=== PATIENT | male | born 1935 | race Caucasian/White ===

== ENCOUNTER 2021-12-17 15:36 | Inpatient (IN) | payer MEDICARE, BC ==
[~2021-12-17] VITALS: Ht 165.1 cm; Wt 85.0 kg
--- NOTE | 2021-12-17 16:25 | NUR ---
Patient to room 346 by EMS, Alert and drowsy. Family at the bedside. Nurse oriented the patient and family to location, call light and room. NG to LIS, no output. Call light within reach. Bed alarm on
[2021-12-17] MEDS ORDERED: SYNTHROID0.075 MG/T PO (17:45)
[2021-12-17] MEDS ORDERED: XARELTO20 MG PO (17:45)
[2021-12-17] MEDS ORDERED: MEVACOR40 MG PO (17:45)
[2021-12-17] MEDS ORDERED: PROSCAR 5MG5 MG PO (17:45)
[2021-12-17] MEDS ORDERED: PROTONIX 40MG T40 MG PO (17:45)
[2021-12-17] MEDS ORDERED: LOSARTAN-HCTZ 100-25 PO (17:45)
[2021-12-17] MEDS ORDERED: KLOR-CON M1010 MEQ PO (17:46)
[2021-12-17] MEDS ORDERED: COREG 25MG25 MG/TAB PO (17:46)
[2021-12-17] MEDS ORDERED: NEURONTIN300 MG/CAP PO (17:46)
[2021-12-17] MEDS ORDERED: HYZAAR 25 MG-101 TAB PO (17:47)
[2021-12-17 18:10] VITALS: BP 164/73; PULSE 79; TEMP 98.6
--- NOTE | 2021-12-17 19:28 | NUR ---
Patient more awake in bed, family left. A&O, drowsy. Complaints of pain/discomfort in abdomen. IV CDI, fluids infusing. NG LIS, no output. [place] at the bedside. Patient NPO. Call light within reach. Bed alarm on
[2021-12-17 20:21] VITALS: BP 155/63; PULSE 61; TEMP 98
[2021-12-17 23:45] VITALS: BP 175/71; PULSE 68; TEMP 98
[2021-12-18] VITALS (11 sets, daily range): BP systolic 92–153; BP diastolic 54–62; PULSE 60–80; TEMP 97.7–99.1
--- NOTE | 2021-12-18 02:10 | NUR ---
Received report from day shift. Patient resting in bed. Alert and oriented x4. VSS. NG tube to LIS. No output since 1700. Advanced NG tube, added air bolus, repositioned patient. Obtained 100cc from NG tube. Patient complains of nausea/bloody emesis, and pain. Reported to hospitalist. Patient given pain medication and phenergen. Patient resting in bed with call light near.
--- NOTE | 2021-12-18 04:38 | NUR ---
Patient continues to feel nauseated with very little out NG tube. Administered air bolus, over 900cc collected and continues to accumulate. Patient reports nausea is subsiding.
[2021-12-18 06:05] LABS: BASO % 0.2 % (0.0-2.0); GRAN # 10.9 K/mm3 (1.4-6.5); GRAN % 87.2 % (42.2-75.2); HEMOGLOBIN 10.1 g/dl (13.5-18.0); LYMPH # 0.6 K/mm3 (1.2-3.4); MEAN CELL VOLUME 94 fl (80.0-100.0); MEAN CORPUSCULAR HEMOGLOBIN 31 pg (27-31); MEAN CORPUSCULAR HGB CONC 34 g/dl (33.0-37.0); MEAN PLATELET VOLUME 9.4 fl (7.4-10.4); MONO # 0.8 K/mm3 (0.1-0.6); MONO % 6.5 % (1.7-9.3); PLATELET COUNT 261 K/mm3 (130-400); RED BLOOD COUNT 3.22 M/mm3 (4.20-5.60)
[2021-12-18 06:08] LABS: CREATININE, serum 2.56 mg/dL (0.72-1.25); MAGNESIUM 2.4 mg/dL (1.6-2.6); POTASSIUM 3.5 mmol/L (3.5-4.5)
[2021-12-18 06:10] LABS: HEMATOCRIT 30.1 % (42.0-52.0)
--- NOTE | 2021-12-18 08:00 | NUR ---
PATIENT ORIENTED BUT DROWSY. VSS ON TELE. NO C/O NAUSEA. ABD IS DISTENDED WITH HYPO BOWL SOUNDS. NG TO LIS WITH SMALL AMOUNTS OF DARK GREEN OUTPUT NOTED. NPO. IV FLUIDS INFUSING VIA PUMP INTO LEFT AC VIA PUMP. HEAD TO TOE ASSESSMENT COMPLETE. SCD'S TO BLE. PT/OT CONSULTED. PATIENT RESTING WITH NO NEEDS. CALL LIGHT IN REACH.
--- NOTE | 2021-12-18 09:19 | NUR ---
Initial visit; Patient thanked Patient Services Specialist for looking in on him and offering prayer and keeping him and his family in her prayers. Gregorio's sister just and he asked Patient Services Specialist keep her family in her prayers. Patient appears to be anxious about his health issues and waiting to talk to his Physician about the next steps that will be taken to discern what his health care plan will entail.
--- NOTE | 2021-12-18 10:54 | NUR ---
print binding and finishing worker met with patient to complete intake and discuss discharge plan. Patient lives at home with his Joya ([phone]) in [place]. Patient reports to being fully independent with his ADL's. He does use a cane "quite bit" to assist with ambulation. Patient has no home oxygen needs but does utilize a CPAP machine at night which is managed through [place] [facility] in [place]. PCP is Dr. Jack Bills and he utilizes [facility] in [place]. Patient states that he does have a DPOA-HC established and has a copy of it at home. He states that it lists his primary agent at his Joya and secondary agent is his daughter Leela ([phone]). At this time, the patient has an NG tube placed. Collaborated with the patients RN who is in agreement that the patient should have a PT/OT eval. Order placed with the patients PA. Discharge plan: Home; pending PT/OT eval
--- NOTE | 2021-12-18 12:00 | NUR ---
PATIENT GOING DOWN FOR LEXISCAN. NG CLAMPED. PATIENT OFF FLOOR.
--- NOTE | 2021-12-18 12:30 | NUR ---
CALLED [facility] AND CURRENT MEDICATION LIST IS BEING FAXED. ALSO CONTACTED THE PATIENT'S PCP FOR PRIOR RECORDS AND BASELINE CREATININE, NO ANSWER, LEFT MESSAGE.
[2021-12-18] MEDS ORDERED: ROXICODONE 55 MG/TAB PO (13:43)
[2021-12-18] MEDS ORDERED: LEVAQUIN 5500 MG/TA1 PO (13:45)
--- NOTE | 2021-12-18 22:23 | NUR ---
Received report from day shift. Patient here for SBO. Patient drowsy but arousable. VSS. Assessment performed. SCD's applied. NG tube to LIS with minimal output. Patient resting in bed with call light near.
[2021-12-19 04:21] VITALS: BP 150/56; PULSE 59; TEMP 98.1
[2021-12-19 06:46] LABS: BASO % 0.4 % (0.0-2.0); EOS # 0.1 K/mm3 (0.0-0.7); EOS % 1.4 % (0.0-4.0); GRAN # 6.2 K/mm3 (1.4-6.5); GRAN % 79.9 % (42.2-75.2); LYMPH # 0.7 K/mm3 (1.2-3.4); LYMPH % 9.3 % (20.0-51.0); MEAN CELL VOLUME 93 fl (80.0-100.0); MEAN CORPUSCULAR HGB CONC 33 g/dl (33.0-37.0); MEAN PLATELET VOLUME 9.3 fl (7.4-10.4); MONO # 0.6 K/mm3 (0.1-0.6); MONO % 8.2 % (1.7-9.3); PLATELET COUNT 213 K/mm3 (130-400); RED BLOOD COUNT 2.97 M/mm3 (4.20-5.60)
[2021-12-19 06:50] LABS: HEMATOCRIT 27.7 % (42.0-52.0); HEMOGLOBIN 9.2 g/dl (13.5-18.0); MEAN CORPUSCULAR HEMOGLOBIN 31 pg (27-31)
[2021-12-19 07:07] LABS: CALCIUM 8.4 mg/dL (8.4-10.2); CREATININE, serum 2.11 mg/dL (0.72-1.25); POTASSIUM 3.2 mmol/L (3.5-4.5)
[2021-12-19 07:24] VITALS: BP 170/60; PULSE 60; TEMP 98.3
--- NOTE | 2021-12-19 10:29 | NUR ---
Follow-up visit; Patient states he is doing ok and thanked Burial Vault Deliverer And Installer for looking in on him again and wishing him well.
--- NOTE | 2021-12-19 11:29 | NUR ---
WHILE WORKING WITH OT PT'S NG TUBE "CAME OUT". PT CURRENTLY REFUSING TO HAVE IT REPLACED. TOLERATING ICE CHIPS. IN SHOWER AT THIS TIME. PT VOIDING WELL. DENIES NAUSEA/VOMITING. BOWEL SOUNDS HYPO.
[2021-12-19 12:00] VITALS: BP 177/59; PULSE 62; TEMP 98.1
--- NOTE | 2021-12-19 14:21 | NUR ---
LEFT MESSAGE FOR UPDATING PT STATUS.
[2021-12-19 16:14] VITALS: BP 179/75; PULSE 70; TEMP 98.6
[2021-12-19 20:00] VITALS: BP 173/76; PULSE 80; TEMP 98.4
[2021-12-20 00:14] VITALS: BP 149/73; PULSE 85; TEMP 99.1
--- NOTE | 2021-12-20 03:13 | NUR ---
Received report from day shift. Patient here for SBO. VSS. Patient alert and oriented x4. Patient denies pain at this time. Assessment performed. PM meds administered. Patient reports flatulence today but no BM. NG tube fell out today. Patient advanced to clear diet, tolerating well. Patient requests sleeping aid. Call light within reach.
[2021-12-20 04:00] VITALS: BP 167/70; PULSE 80; TEMP 98.4
[2021-12-20 06:28] LABS: BASO % 0.4 % (0.0-2.0); EOS # 0.2 K/mm3 (0.0-0.7); EOS % 2.1 % (0.0-4.0); GRAN % 79.2 % (42.2-75.2); LYMPH # 0.6 K/mm3 (1.2-3.4); LYMPH % 8.3 % (20.0-51.0); MEAN CELL VOLUME 92 fl (80.0-100.0); MEAN CORPUSCULAR HGB CONC 33 g/dl (33.0-37.0); MEAN PLATELET VOLUME 9.5 fl (7.4-10.4); MONO # 0.7 K/mm3 (0.1-0.6); MONO % 8.7 % (1.7-9.3); PLATELET COUNT 222 K/mm3 (130-400); RED BLOOD COUNT 2.91 M/mm3 (4.20-5.60); REDCELL DISTRIBUTION WIDTH-CV 12.7 % (11.5-14.5)
[2021-12-20 06:30] LABS: HEMATOCRIT 26.8 % (42.0-52.0); HEMOGLOBIN 8.9 g/dl (13.5-18.0); MEAN CORPUSCULAR HEMOGLOBIN 31 pg (27-31)
[2021-12-20 06:36] LABS: CALCIUM 8.5 mg/dL (8.4-10.2); CREATININE, serum 1.8 mg/dL (0.72-1.25); POTASSIUM 3.5 mmol/L (3.5-4.5)
[2021-12-20 08:20] VITALS: BP 161/77; PULSE 80; TEMP 97.8
[2021-12-20 12:06] VITALS: BP 157/85; PULSE 95; TEMP 98.5
--- NOTE | 2021-12-20 14:30 | NUR ---
PT APPEARS TO BE SLEEPING IN BED. PT HAS BEEN UP TO AMBULATE IN HALLWAY X2 TODAY ET MORE FREQUENTLY IN THE ROOM. IVF DECREASED FROM 75 TO 60 ML/HR PER ORDERS. RESPIRATIONS UNLABORED CALL LIGHT WITHIN REACH.
[2021-12-20 16:12] VITALS: BP 161/83; PULSE 80; TEMP 98.6; TEMP 986
--- NOTE | 2021-12-20 21:21 | NUR ---
PATIENT WAS HAVING SOME NAUSEA AROUND 8PM PROVIDED PRN ZOFRAN. 30MIN LATER PATIENT HAD NAUSEA VOMITED SMALL AMOUNT X1. AROUND 9:22PM PATIENT VOMITING X1 SMALL AMOUNT, ASKED PATIENT TO NOT DRINK ANYTHING AT THIS TIME UNTIL STOMACH SETTLES AND VOMITING SUBSIDES. WILL CONTINUE TO MONITOR DENIES ANY PAIN JUST STATES HIS STOMACH FEELS BLOATED. HOB ELVATED ABOVE 30 DEGREES TO PREVENT ASPIRATION. PATIENT CONTINUES ON IV FLUIDS. NG TUBE REMOVED YESTERDAY PER DAY NURSE NO BM NOTED AT THIS TIME. BOWEL SOUND HYPOACTIVE IN RLQ,RUQ,LUQ. HYPERACTIVE IN LLQ. CALL LIGHT WITHIN REACH WILL CONTINUE TO MONITOR.
--- NOTE | 2021-12-20 23:27 | NUR ---
NO FURTHER VOMITING NOTED SINCE 9:00PM PATIENT STATED THAT HIS STOMACH FEELS BETTER BUT HE FEELS WEAK IN THE LEGS AND WILL ASK FOR ASSISTANCE [facility] TOILETING.
[2021-12-21] VITALS (9 sets, daily range): BP systolic 135–198; BP diastolic 53–86; PULSE 61–80; TEMP 98.2–99.6
--- NOTE | 2021-12-21 04:09 | NUR ---
PATIENT SLEEPING AT THIS TIME NO FURTHER NAUSEA OR VOMITING NOTED AT THIS TIME. NO S/S OF PAIN NOTED, WILL INFORM OF ONCOMING SHIFT OF NAUSEA AND VOMITING LAST NIGHT. WAS INFORMED NG TUBE WAS ACCIDENTLY PULLED OUT ON 12/19/21.
--- NOTE | 2021-12-21 04:59 | NUR ---
WITHOLDING PO FLUIDS SINCE VOMITING LAST NIGHT PENDING BOWEL MOVEMENT.
--- NOTE | 2021-12-21 06:06 | NUR ---
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 WILL ASK DAY SHIFT NURSE TO FOLLOW UP WITH HOME MEDICATIONS.
[2021-12-21 06:07] LABS: BASO % 0.2 % (0.0-2.0); EOS # 0.2 K/mm3 (0.0-0.7); EOS % 2.8 % (0.0-4.0); GRAN % 82.7 % (42.2-75.2); LYMPH # 0.5 K/mm3 (1.2-3.4); LYMPH % 6.3 % (20.0-51.0); MEAN CELL VOLUME 94 fl (80.0-100.0); MEAN CORPUSCULAR HGB CONC 34 g/dl (33.0-37.0); MEAN PLATELET VOLUME 9.5 fl (7.4-10.4); MONO # 0.6 K/mm3 (0.1-0.6); MONO % 7.2 % (1.7-9.3); PLATELET COUNT 205 K/mm3 (130-400); RED BLOOD COUNT 2.72 M/mm3 (4.20-5.60); REDCELL DISTRIBUTION WIDTH-CV 12.9 % (11.5-14.5)
[2021-12-21 06:16] LABS: HEMATOCRIT 25.5 % (42.0-52.0); HEMOGLOBIN 8.6 g/dl (13.5-18.0); MEAN CORPUSCULAR HEMOGLOBIN 32 pg (27-31)
[2021-12-21 06:24] LABS: CALCIUM 8.1 mg/dL (8.4-10.2); CREATININE, serum 1.63 mg/dL (0.72-1.25); POTASSIUM 3.9 mmol/L (3.5-4.5)
[2021-12-21] MEDS ORDERED: REQUIP 0.5MG0.5 MG PO (07:48)
[2021-12-21] MEDS ORDERED: SINEMET 25/101 UDTAB PO (07:49)
--- NOTE | 2021-12-21 09:30 | NUR ---
PT STATES THAT HE DOES TAKE PARKINSON'S MEDICATION @ HOME BUT HAS NOT NEEDED TO REFILL BOTTLES WITH THE PHARMACY IN A VERY LONG TIME DUE TO EXCESS MEDICATION ET DOSAGES CHANGING. PT'S IS CALLED ET SHE IS ABLE TO TELL THIS NURSE OVER THE PHONE WHAT DOSAGES ET TIMES OF DAY THAT PT TAKES MEDICATIONS BASED ON PRESCRIPTION ON BOTTLES. MEDICATIONS HAVE BEEN ADDED TO PT'S HOME MED LIST. DR. PABON NOTIFIED.
--- NOTE | 2021-12-21 10:14 | NUR ---
XRAY IN ROOM @ THIS TIME. PT HAS BEEN UP TO AMBULATE IN HALLS WITH SBA. IVF INFUSING. PT HAS ALSO BEEN ASSISTED TO TAKE A SHOWER, REPORTS HAVING A BM BEFORE GETTING INTO SHOWER. PT STATES THAT HE FEELS SOME RELIEF AFTER BM, LESSENING ABDOMINAL PRESSURE, DENIES PAIN OR NAUSEA.
--- NOTE | 2021-12-21 17:39 | NUR ---
PT'S BP REMAINS ELEVATED AFTER LABETALOL IV ADMINISTRATION. DR. PABON HAS BEEN NOTIFIED. HYDRALAZINE IV HAS BEEN ADMINISTERED, WILL RE-ASSESS IN 30 MINUTES.
--- NOTE | 2021-12-21 18:19 | NUR ---
PT'S BP CONTINUES TO BE HIGH. PT IS ASYMPTOMATIC, DENIES HEADACHE OR ANY SYMPTOMS OTHER THAN FATIGUE. Brooke RAINES NOTIFIED ET ORDER RECEIVED TO GIVE 1 ADDITIONAL DOSE OF HYDRALAZINE NOW.
--- NOTE | 2021-12-21 19:40 | NUR ---
Pt got up to the restroom to void. He ended up sitting down as he became nauseated. Pt did have a small amount of emesis and stated he felt terrible. PRN nausea medication given and assisted him back to bed. Gave pt call light
--- NOTE | 2021-12-21 20:37 | NUR ---
Pt continues to be nauseated with emesis. Nitza RAINES notified, new orders entered
--- NOTE | 2021-12-21 21:20 | NUR ---
Pt reports feeling better since receiving the phenergan. Pt is now resting in bed. Reports that he still does not feel well, but is able to rest. Abd continues to be distended, hypoactive bowel sounds
[2021-12-22] VITALS (7 sets, daily range): BP systolic 140–179; BP diastolic 63–98; PULSE 79–81; TEMP 97.8–983.8
--- NOTE | 2021-12-22 02:03 | NUR ---
Assumed care around approx. 2230. Patient resting in bed complaining of nausea/vomiting. Patient has had several bouts of vomiting. Called hospitalist for guidance. Irma advised of situation. Nurse recommends NG tube. Ordered and inserted NG tube. 1700 suctioned out. Patient given zofran. Resting in bed with call light near.
--- NOTE | 2021-12-22 06:03 | NUR ---
Patient has had 2.5 Liters suctioned through NG tube. Patient reports feeling a little better and has been sleeping. No more episodes of n/v post NG tube insertion.
[2021-12-22 06:49] LABS: BASO % 0.2 % (0.0-2.0); EOS % 0.1 % (0.0-4.0); GRAN # 13.1 K/mm3 (1.4-6.5); GRAN % 89.3 % (42.2-75.2); LYMPH # 0.4 K/mm3 (1.2-3.4); LYMPH % 2.9 % (20.0-51.0); MEAN CELL VOLUME 95 fl (80.0-100.0); MEAN CORPUSCULAR HEMOGLOBIN 32 pg (27-31); MEAN CORPUSCULAR HGB CONC 34 g/dl (33.0-37.0); MEAN PLATELET VOLUME 9.8 fl (7.4-10.4); MONO % 6.5 % (1.7-9.3); PLATELET COUNT 216 K/mm3 (130-400); RED BLOOD COUNT 3.13 M/mm3 (4.20-5.60); REDCELL DISTRIBUTION WIDTH-CV 13.2 % (11.5-14.5)
[2021-12-22 06:53] LABS: CALCIUM 8.5 mg/dL (8.4-10.2); CREATININE, serum 1.6 mg/dL (0.72-1.25); POTASSIUM 4.1 mmol/L (3.5-4.5)
[2021-12-22 07:09] LABS: HEMATOCRIT 29.6 % (42.0-52.0)
--- NOTE | 2021-12-22 08:52 | NUR ---
PATIENT ALERT AND ORIENTED X3. IV TO LEFT FOREARM. NG TUBE BACK IN PLACE. PATIENT FEELING BETTER.
[2021-12-23 03:42] VITALS: BP 155/61; PULSE 81; TEMP 97.4
--- NOTE | 2021-12-23 05:05 | NUR ---
Pt has had an uneventful evening. Ambulated throughout the hallways with PCT as SBA; did so w/o difficulty. No complaints of pain. NG tube still in place at the L nare, at LIS and draining well. All other needs met at this time, call light within reach.
[2021-12-23 06:29] LABS: BASO % 0.3 % (0.0-2.0); EOS # 0.2 K/mm3 (0.0-0.7); EOS % 1.6 % (0.0-4.0); GRAN # 8.8 K/mm3 (1.4-6.5); GRAN % 81.8 % (42.2-75.2); LYMPH # 0.8 K/mm3 (1.2-3.4); LYMPH % 7.1 % (20.0-51.0); MEAN CELL VOLUME 95 fl (80.0-100.0); MEAN CORPUSCULAR HGB CONC 33 g/dl (33.0-37.0); MEAN PLATELET VOLUME 9.7 fl (7.4-10.4); MONO # 0.9 K/mm3 (0.1-0.6); MONO % 8.3 % (1.7-9.3); PLATELET COUNT 228 K/mm3 (130-400); RED BLOOD COUNT 2.97 M/mm3 (4.20-5.60); REDCELL DISTRIBUTION WIDTH-CV 13.2 % (11.5-14.5)
[2021-12-23 06:33] LABS: CALCIUM 8.8 mg/dL (8.4-10.2); CREATININE, serum 1.8 mg/dL (0.72-1.25); POTASSIUM 3.6 mmol/L (3.5-4.5)
[2021-12-23 06:36] LABS: HEMATOCRIT 28.1 % (42.0-52.0); HEMOGLOBIN 9.2 g/dl (13.5-18.0); MEAN CORPUSCULAR HEMOGLOBIN 31 pg (27-31)
[2021-12-23 07:00] VITALS: BP 165/75; PULSE 80; TEMP 97.9
--- NOTE | 2021-12-23 10:14 | NUR ---
SW attended rounds this morning. Patient seen by surgeon who is not recommending surgery at this time. Patients contacted by surgeon. Patient unable to work with therapy yesterday due to N/V. Hopefully he can work with them today. All questions answered by .
[2021-12-23 11:31] VITALS: BP 166/884; PULSE 80
[2021-12-23 15:53] VITALS: BP 163/72; PULSE 79; TEMP 98.1
[2021-12-23 20:14] VITALS: BP 180/76; PULSE 81; TEMP 98.3
[2021-12-23 23:33] VITALS: BP 168/73; PULSE 80; TEMP 98.2
--- NOTE | 2021-12-24 03:31 | NUR ---
Pt has had a quiet evening. Still connected to LIS via NG tube with lightening output. Pt took multiple walks with the PCT around the nurses station. Gait is steady and shows no signs of weakness. Pt has had no complaints of pain throughout, all other needs met at this time. Call light within reach.
[2021-12-24 03:35] VITALS: BP 167/77; PULSE 81; TEMP 98.2
[2021-12-24 07:28] VITALS: BP 178/79; PULSE 72; TEMP 98.2
[2021-12-24 09:00] LABS: CALCIUM 8.7 mg/dL (8.4-10.2); CREATININE, serum 1.7 mg/dL (0.72-1.25); POTASSIUM 3.5 mmol/L (3.5-4.5)
--- NOTE | 2021-12-24 09:50 | NUR ---
PT RESTING IN BED AFTER GOING TO SCAN.
--- NOTE | 2021-12-24 11:25 | NUR ---
UPDATED CARMEN RAINES ON PT STATUS AND REVIEWED MEDICATION CONCERNS R\T PARKINSONS MEDICATIONS. OK TO HOLD POTASSIUM PROTOCOL UNTIL PT RETURNS FROM SURGERY.
[2021-12-24 12:00] VITALS: BP 174/78; PULSE 77; TEMP 97.9
--- NOTE | 2021-12-24 13:20 | NUR ---
PT TO SURGERY PER BED WITH
[2021-12-24 14:53] LABS: PHOSPHOROUS 2.5 mg/dL (2.3-4.7)
--- NOTE | 2021-12-24 17:57 | NUR ---
G TUBE TO LUX BAG IF NAUSEA OR VOMITING PLACE TO SUCTION.
[2021-12-24 18:30] VITALS: BP 119/50; PULSE 67; TEMP 98.4
--- NOTE | 2021-12-24 18:53 | NUR ---
PT TO ROOM 346 PER BED WITH REPORT FROM [facility] PACU @4812. PT IS A/O X4, DROWSEY, LUNGS CTA, MIDLINE INCISION WITH PEG TUBE PLACED. TRIPLE LUMEN CENTRAL LINE TO RIGHT FEMORAL. PEG TUBE TO DD WITH LUX BAG TO RIGHT SIDE. LUX CATHETER TO LEFT SIDE WITH CLEAR YELLOW URINE IN COLLECTION BAG.
[2021-12-24 21:15] VITALS: BP 124/48; PULSE 73; TEMP 98.4
[2021-12-24 22:15] VITALS: BP 124/48; PULSE 73; TEMP 98.4
[2021-12-25] VITALS (11 sets, daily range): BP systolic 116–141; BP diastolic 47–68; PULSE 67–86; TEMP 97.5–98.8
[2021-12-25 06:37] LABS: BILIRUBIN,TOTAL 0.5 mg/dL (0.2-1.2); CALCIUM 8.3 mg/dL (8.4-10.2); CREATININE, serum 2.24 mg/dL (0.72-1.25); PHOSPHOROUS 3.4 mg/dL (2.3-4.7); POTASSIUM 3.8 mmol/L (3.5-4.5)
--- NOTE | 2021-12-25 12:29 | NUR ---
PT SITTING IN RECLINER CHAIR, HAD BEEN ASSISTED TO SIT UP WITH THERAPY THIS MORNING. TPN ET [address] SERVICE LOCKSMITH INFUSING INTO FEMORAL TRIPLE LUMEN CENTRAL LINE. TPN WILL BE STOPPED AFTER CURRENT BAG IS COMPLETED PER ORDERS. PT REMAINS NPO EXCEPT FOR ICE CHIPS. FAMILY IS @ BEDSIDE BUT IS PLANNING TO LEAVE SOON FOR LUNCH. PT STATES THAT HE IS AGREEABLE TO BE ASSISTED BACK INTO BED WHEN FAMILY LEAVES. RESPIRATIONS UNLABORED ON 2L NC. CALL LIGHT WITHIN REACH.
--- NOTE | 2021-12-25 15:12 | NUR ---
Met with patient and family at bedside. Patient states that he has accepted God and is ready to go to [facility]. I brought up hospice and if he no longer wants to seek any treatment, that would be the direction we would look at. He and his family are from [place] and he would like to return home. Current plan is to talk with the surgeon and then make a decision about going with hospice or not and when. Notified SW and they plan to look at options in [place]. Gave my contact information at family is unsure they will be able to visit tomorrow.
--- NOTE | 2021-12-25 16:15 | NUR ---
SW met with patient to discuss palliative consult. Patient's and other family memebers present waiting to speak with the surgeon. Patient and family are in agreement that depending on what the surgeon says they are going to want to pursue hospice at home. There preferred choice is [facility] hosp[facility] out of [place]. Informed them that i will touch base with them in the morning.
--- NOTE | 2021-12-25 19:19 | NUR ---
PT RESTING QUIETLY IN BED WITH EYES CLOSED, HAS BEEN REPOSITIONED IN BED. PT IS ABLE TO REPOSITION SELF IN BED WITH MINIMAL ASSISTANCE. REPORT HAS BEEN GIVEN TO CERTIFIED CAREGIVER NURSE. G-TUBE IN PLACE TO DEPENDENT DRAINAGE, SHADOW DRAINAGE SEEN ON DRESSING OVER PT'S MIDLINE INCISION, DRAINAGE IS DARK BROWN. LUX CATHETER IN PLACE, URINE HAS BEEN AVANI, OCCASIONAL BLOOD ET SEDIMENT SEEN IN TUBING. CERTIFIED CAREGIVER PUMP ET IVF INFUSING INTO FEMORAL TRIPLE LUMEN LINE. PT TOLERATES PO LIQUIDS ET SHERBERT CUP WELL, DENIES NAUSEA. RESPIRATIONS UNLABORED ON 2L O2 NC. BED ALARM IS ON. CALL LIGHT WITHIN REACH.
--- NOTE | 2021-12-25 19:23 | NUR ---
RECEIVED CHANGE OF SHIFT REPORT FROM DAY SHIFT RN.
--- NOTE | 2021-12-25 23:13 | NUR ---
RESTING IN BED, AWAKENS WITH NAME CALLED. USING FORM PRESS OPERATOR TO MANAGE C/O PAIN. G-TUBE TO DD IN PLACE W/GREENISH DRAINAGE. LUX TO DD IN PLACE, DRAINING WITH NO PROBLEMS. IV/FORM PRESS OPERATOR TO R FEMORAL CENTRAL LINE/TRIPLE LUMEN. DENIES CHEST PAIN/SOA/NAUSEA SO FAR THIS SHIFT.
[2021-12-26] VITALS (9 sets, daily range): BP systolic 119–152; BP diastolic 46–72; PULSE 63–85; TEMP 97.6–98.7
[2021-12-26 06:22] LABS: CREATININE, serum 3.46 mg/dL (0.72-1.25); MAGNESIUM 1.9 mg/dL (1.6-2.6); PHOSPHOROUS 3.7 mg/dL (2.3-4.7); POTASSIUM 3.6 mmol/L (3.5-4.5)
--- NOTE | 2021-12-26 06:59 | NUR ---
CHANGE OF SHIFT REPORT GIVEN TO DAY SHIFT RNARNOLD.
--- NOTE | 2021-12-26 10:35 | NUR ---
After collaboration with the hospitalist team and the family, the goal is to get the patient to [facility]/Inpatient for pain management and then transition the patient home with hospice services. Patients clinical information sent to [facility].
--- NOTE | 2021-12-26 11:14 | NUR ---
Spoke with patient, he states that he would appreciate returning to [place] in any fashion as soon as possible and to talk with his about specifics. Call made to patient's , Joya. She states that it will take time to get their apartment ready to care for the patient and she is unsure she will be able to this weekend. She asked if it was possible for him to go to the [facility] for a short time until she is able to get things set up. I told her I would talk with the doctors and SW to see what we can arrange. SW in contact with [facility]. Hospitalist aware and willing to talk with PCP or [place] physician to facility transfer.
--- NOTE | 2021-12-26 13:36 | NUR ---
Phone call received from Pamela at [facility]. Their team is in agreement that getting the patient to [facility] either under SWBD or INPT w/hospice. Pamela states that their team has a message out to the direct support professional caregiver physcian to see about wiritng an order to admit the patient inpatient w/hospice. Notified her that our MD has spoke with the patient's PCP and is awaiting a phone call back from him. PCP is working on getting the patient admitted as well.
--- NOTE | 2021-12-26 15:17 | NUR ---
Phone call made to Hanane at [facility]. She states that their team is waiting to hear back from the hospice team. She did state that they have gotten an order from the patients PCP. There concerns is pain management. MATT reiterated that the patient would be coming with the TELEPHONIC NURSE pump and that the goal for him coming to their facility is to wean him off of it to get home with hospice services. Hanane states that she will try to call the hospice team to let them know and will call me back.
--- NOTE | 2021-12-26 16:09 | NUR ---
MATT notified by Hanane that they are able to accept this patient tonight as an inpatient w/hospice services. [facility] contacted and arrangement made for the patient to be picked up at 16:30. Care team, family and patient updated. House sup. notified. Patients clinical information faxed. Discharge plan: [facility] w/hospice
--- NOTE | 2021-12-26 16:42 | NUR ---
PT TRANSFERRED VIA EMS TO [facility] @ THIS TIME. DILAUDID SOFTWARE QUALITY ANALYST ET IVF HAVE BEEN DISCONNECTED FROM PT. FENTANYL PATCH IS IN PLACE TO PT'S LEFT SHOULDER. PT HAS HAD FAMILY IN ROOM VISITING WITH HIM THIS AFTERNOON. FAMILY HAS PACKED ET TAKEN PT'S PERSONAL BELONGINGS PER HIS REQUEST. G-TUBE IS IN PLACE TO DEPENDENT DRAINAGE, DRAINAGE IS GREEN. PT HAS DENIED ANY NAUSEA, HAS NOT EATEN BUT HAS SIPPED ON ICED TEA, DENIES ANY NAUSEA OR HUNGER. GAUZE DRESSING IN PLACE TO MIDLINE INCISION, SHADOW DRAINAGE SEEN BUT HAS NOT CHANGED FROM ASSESSMENT THIS MORNING. LUX CATHETER IS IN PLACE, URINE IS AVANI WITH SEDIMENT ET OCCASIONAL BLOOD SEEN.
== END 2021-12-26 16:42 | disposition short-term general hospital (02) | DRG 336 ==
LOC: SURG 15:36
PROVIDERS: Physician Assistant; Student in an Organized Health Care Education/Training Program; Surgery; ADMIT Internal Medicine
PROC: 0DNW0ZZ Release Peritoneum, Open Approach (ICD-10-PCS; 2021-12-24)
PROC: 0DNL0ZZ Release Transverse Colon, Open Approach (ICD-10-PCS; 2021-12-24)
PROC: 0DBV0ZX Excision of Mesentery, Open Approach, Diagnostic (ICD-10-PCS; 2021-12-24)
PROC: 0DH60UZ Insertion of Feeding Device into Stomach, Open Approach (ICD-10-PCS; 2021-12-24)
PROC: 06HM33Z Insertion of Infusion Device into Right Femoral Vein, Percutaneous Approach (ICD-10-PCS; principal; 2021-12-24 13:00)
PROC: 0DN80ZZ Release Small Intestine, Open Approach (ICD-10-PCS; 2021-12-24 13:00)
PROC: 0DNU0ZZ Release Omentum, Open Approach (ICD-10-PCS; 2021-12-24 13:00)
DX: K56.50 Intestinal adhesions [bands], unspecified as to partial versus complete obstruction (principal); E87.2 Acidosis; I13.0 Hypertensive heart and chronic kidney disease with heart failure and stage 1 through stage 4 chronic kidney disease, or unspecified chronic kidney disease; N18.4 Chronic kidney disease, stage 4 (severe); E03.9 Hypothyroidism, unspecified; E11.42 Type 2 diabetes mellitus with diabetic polyneuropathy; E11.22 Type 2 diabetes mellitus with diabetic chronic kidney disease; I25.10 Atherosclerotic heart disease of native coronary artery without angina pectoris; J44.9 Chronic obstructive pulmonary disease, unspecified; N28.1 Cyst of kidney, acquired; I48.0 Paroxysmal atrial fibrillation; I50.9 Heart failure, unspecified; G20 Parkinson's disease; E87.6 Hypokalemia; I08.1 Rheumatic disorders of both mitral and tricuspid valves; M17.0 Bilateral primary osteoarthritis of knee; G47.33 Obstructive sleep apnea (adult) (pediatric); I27.20 Pulmonary hypertension, unspecified; E78.5 Hyperlipidemia, unspecified; R79.89 Other specified abnormal findings of blood chemistry; Y83.9 Surgical procedure, unspecified as the cause of abnormal reaction of the patient, or of later complication, without mention of misadventure at the time of the procedure; Z96.652 Presence of left artificial knee joint; Z95.5 Presence of coronary angioplasty implant and graft; Z95.1 Presence of aortocoronary bypass graft; Z87.891 Personal history of nicotine dependence; Z88.0 Allergy status to penicillin
CPT/HCPCS: 99223-AI; 99232-AI; 99233-AI; 99239; A4314; A9500; C1751; C1892; C9113; J0330; J0360; J1170; J1644; J1815; J2270; J2405; J2550; J2704; J2785; J3010; J3411; J3480; J7030; J7070